=== PATIENT | female | born 1995 | race Caucasian/White ===

== ENCOUNTER 2017-05-04 01:27 | Emergency (ER) | payer SELFPAY ==
[~2017-05-04] VITALS: Ht 172.7 cm; Wt 120.0 kg
[2017-05-04 01:38] VITALS: Ht 172.7 cm; Wt 120.0 kg
== END 2017-05-04 02:51 | disposition left against medical advice (07) ==
LOC: FTE 01:27 → E/R 02:51
DX: Z53.21 Procedure and treatment not carried out due to patient leaving prior to being seen by health care provider (principal)